=== PATIENT | female | born 1980 | race Caucasian/White ===

== ENCOUNTER 2019-07-23 09:20 | Emergency (ER) | payer BC, OTHER ==
[~2019-07-23] VITALS: Ht 165.1 cm; Wt 93.0 kg
[2019-07-23 09:20] VITALS: BP 122/66
[~2019-07-23 09:20] MED LIST: ACID REDUCER; ALLERGY SHOTS; AUGMENTIN 875875 MG PO; NORCO 5-325 TA1 EACH PO; ZYRTEC10 M2 PO
[2019-07-23] MEDS ORDERED: LEVO-T88 MCG PO (09:30)
[2019-07-23] MEDS ORDERED: SYNTHROID100 MC1 PO (09:30)
[2019-07-23] MEDS ORDERED: AUGMENTIN 500-1 EACH PO (11:17)
== END 2019-07-23 11:17 | disposition home or self-care (01) ==
LOC: ER 09:20
DX: S60.512A Abrasion of left hand, initial encounter (principal); J45.909 Unspecified asthma, uncomplicated; W54.0XXA Bitten by dog, initial encounter; Y93.89 Activity, other specified; Y92.89 Other specified places as the place of occurrence of the external cause; Y99.0 Civilian activity done for income or pay

== ENCOUNTER 2020-01-06 17:08 | Emergency (ER) | payer OTHER ==
[~2020-01-06] VITALS: Ht 165.1 cm; Wt 108.9 kg
[~2020-01-06 17:08] MED LIST changes: +AUGMENTIN 500-1 EACH PO; +LEVO-T88 MCG PO; +SYNTHROID100 MC1 PO
[2020-01-06 18:35] VITALS: BP 107/69
== END 2020-01-06 18:28 | disposition home or self-care (01) ==
LOC: ER 17:08
DX: S61.237A Puncture wound without foreign body of left little finger without damage to nail, initial encounter (principal); L23.9 Allergic contact dermatitis, unspecified cause; E03.9 Hypothyroidism, unspecified; J45.909 Unspecified asthma, uncomplicated; X58.XXXA Exposure to other specified factors, initial encounter; Y93.89 Activity, other specified; Y92.89 Other specified places as the place of occurrence of the external cause; Y99.0 Civilian activity done for income or pay